=== PATIENT | female | born 1995 ===

== ENCOUNTER 2017-07-30 20:32 | Emergency (ER) | payer BC ==
[~2017-07-30] VITALS: Ht 152.4 cm; Wt 63.6 kg
[2017-07-30 20:45] VITALS: TEMP 97.7
[2017-07-30 22:05] VITALS: BP 107/70; PULSE 70
== END 2017-07-30 22:10 | disposition home or self-care (01) ==
LOC: COL.ER 20:32
DX: S06.0X0A Concussion without loss of consciousness, initial encounter (principal); S00.31XA Abrasion of nose, initial encounter; R55 Syncope and collapse; W18.39XA Other fall on same level, initial encounter; W22.8XXA Striking against or struck by other objects, initial encounter